=== PATIENT | male | born 1990 | race Caucasian/White ===

== ENCOUNTER 2019-03-25 03:15 | Emergency (ER) | payer OTHER ==
--- NOTE | 2019-03-25 03:43 | EDM.PDOC ---
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 bouncing off his seat striking his head on the roof of last , I would be 5 days prior to arrival He has been seen through [facility], a plain film of his C -spine was performed to was told that he had an old neck injury possibly a healed fracture versus congenital malformation, he was sent by his employer to [place] who performed a CT of the cervical spine which was negative for fracture per patient He has been taking Tylenol 650 mg 3-4 times a day since, he awoke tonight with tingling in his fingertips which prompted his visit today, unfortunately I am not able to perform MRI, he is offered CT to confirm no fracture he declines/ refused I recommend a follow up with occupational health and/or primary care for MRI to rule out nerve compression Has no symptoms such as fever nausea vomiting chills sweats no chest pain shortness breath headache dizziness palpitation no bowel or urine symptoms no neck pain he has full range of motion of his neck horizontal and vertical axis vertebral point tenderness no sensory deficits ] Review of systems: As per history of present illness and below otherwise all systems reviewed and negative. Past medical history: As per history of present illness and as reviewed below otherwise noncontributory. Surgical history: As per history of present illness and as reviewed below otherwise noncontributory. Social history: No reported history of drug or alcohol abuse. Family history: As per history of present illness and as reviewed below otherwise noncontributory. \ Physical exam: HEENT: Atraumatic, normocephalic, pupils reactive, negative for conjunctival pallor or scleral icterus, mucous membranes moist, throat clear, neck supple, nontender, trachea midline. Lungs: Clear to auscultation, breath sounds equal bilaterally, chest nontender. Heart: S1S2, regular, negative for clicks, rubs, or JVD. Abdomen: Soft, nondistended, nontender. Negative for masses or hepatosplenomegaly. Negative for costovertebral tenderness. Pelvis: Stable nontender. Genitourinary: Deferred. Rectal: Deferred. Extremities: Atraumatic, negative for cords or calf pain. Neurovascular unremarkable. Neuro: Awake, alert, oriented. Cranial nerves II through XII unremarkable. Cerebellum unremarkable. Motor and sensory unremarkable throughout. Exam nonfocal. Diagnostics: [Patient refused CT imaging tonight Command follow-up either with occupational health or primary care for consideration of MRI ] Therapeutics: [Continue rest ice Tylenol Prednisone 20 mg by mouth daily #5 no refill ] Impression: [ recent axial load type injury Mild spasm of right SCM on exam cannot rule out nerve compression Paresthesia] Definitive disposition and diagnosis as appropriate pending reevaluation and review of above. no pain Pain Score (Numeric/FACES): 0 - Related Data Allergies Allergy/AdvReac Type Severity Reaction Status Date / Time No Known Allergies Allergy Verified 03/25/19 03:20 Home Meds: Home Meds . [No Known Home Meds] 03/25/19 [History] Past Medical History - Past Health History Medical/Surgical History: Denies Medical/Surgical History HEENT History: Reports: None Cardiovascular History: Reports: None Respiratory History: Reports: None Gastrointestinal History: Reports: None Genitourinary History: Reports: None Musculoskeletal History: Reports: None Neurological History: Reports: None Psychiatric History: Reports: None Endocrine/Metabolic History: Reports: None Hematologic History: Reports: None Immunologic History: Reports: None Oncologic (Cancer) History: Reports: None Dermatologic History: Reports: None - Past Surgical History Head Surgeries/Procedures: Reports: None Social & Family History - Family History Family Medical History: Noncontributory - Tobacco Use Smoking Status *Q: Current Every Day Smoker Years of Tobacco use: 5 Packs/Tins Daily: 1 - Recreational Drug Use Recreational Drug Use: No ED ROS GENERAL - Review of Systems Review Of Systems: See Below ED EXAM, GENERAL - Physical Exam Exam: See Below Course - Vital Signs Last Recorded V/S: Last Vital Signs Temp 96.9 F 03/25/19 03:22 Pulse 72 03/25/19 03:22 Resp 14 03/25/19 03:22 BP 172/104 H 03/25/19 03:22 Pulse Ox 100 03/25/19 03:22 Departure - Departure Time of Disposition: 03:42 Disposition: Home, Self-Care 01 Condition: Good Clinical Impression: Paresthesia, Neck injury - Discharge Information Referrals: PCP,Unknown [Primary Care Provider] - Additional Instructions: Continue Tylenol 650 mg 3-4 times daily 7-10 days Medication as prescribed Return if symptoms persist or worsen Follow-up with occupational health or primary care for consideration of MRI cervical spine [facility] [address] [place] [id number] The following information is given to patients seen in the emergency department who are being discharged to home. This information is to outline your options for follow-up care. We provide all patients seen in our emergency department with a follow-up referral. The need for follow-up, as well as the timing and circumstances, are variable depending upon the specifics of your emergency department visit. If you don't have a primary care physician on staff, we will provide you with a referral. We always advise you to contact your personal physician following an emergency department visit to inform them of the circumstance of the visit and for follow-up with them and/or the need for any referrals to a consulting specialist. The emergency department will also refer you to a specialist when appropriate. This referral assures that you have the opportunity for follow-up care with a specialist. All of these measure are taken in an effort to provide you with optimal care, which includes your follow-up. Under all circumstances we always encourage you to contact your private physician who remains a resource for coordinating your care. When calling for follow-up care, please make the office aware that this follow-up is from your recent emergency room visit. If for any reason you are refused follow-up, please contact the [facility] emergency department at and asked to speak to the emergency department charge nurse.
== END 2019-03-25 03:47 | disposition home or self-care (01) ==
LOC: MW.ED 03:15
DX: S19.9XXA Unspecified injury of neck, initial encounter (principal); R20.2 Paresthesia of skin; F17.210 Nicotine dependence, cigarettes, uncomplicated; M62.838 Other muscle spasm; X58.XXXA Exposure to other specified factors, initial encounter; Y99.0 Civilian activity done for income or pay
CPT/HCPCS: 99283